=== PATIENT | male | born 1955 | race Caucasian/White ===

== ENCOUNTER 2017-02-21 20:16 | Emergency (ER) | payer OTHER ==
[~2017-02-21] VITALS: Ht 170.2 cm; Wt 69.5 kg
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
[2017-02-21 21:06] VITALS: Ht 170.2 cm; Wt 69.5 kg
[2017-02-21] MEDS ORDERED: DIPHTH/TET/ACEL PERTUSS (ADULT) 0.5 ML VIAL IM* ONE (23:00)
[2017-02-22] MEDS ORDERED: ACETAMINOPHEN 325 MG TAB PO ONE
[2017-02-22] MEDS ORDERED: DIPHTH/TET/ACEL PERTUSS (ADULT) 0.5 ML VIAL IM* ONE
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
[2017-02-22] MEDS ORDERED: BACITUD TOP (02:04)
[2017-02-22] MEDS ORDERED: ACET500C5 PO (02:04)
[2017-02-22 02:28] VITALS: BP 162/81; PULSE 88; RESP 20; TEMP 98.3
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
== END 2017-02-22 02:28 | disposition home or self-care (01) ==
LOC: FTE 20:16
DX: S51.812A Laceration without foreign body of left forearm, initial encounter (principal); S19.9XXA Unspecified injury of neck, initial encounter; Y04.0XXA Assault by unarmed brawl or fight, initial encounter; Z23 Encounter for immunization
CPT/HCPCS: 72040; 90471; 90715